=== PATIENT | male | born 1955 | race Caucasian/White ===

== ENCOUNTER 2016-07-20 14:29 | Emergency (ER) | payer MEDICAID, OTHER ==
[~2016-07-20] VITALS: Ht 177.8 cm; Wt 90.7 kg
[2016-07-20 14:30] VITALS: BP 153/89
[2016-07-20] MEDS ORDERED: NORCOTAB PO (15:06)
[2016-07-20] MEDS ORDERED: AUGM875T27 PO (15:06)
== END 2016-07-20 15:15 | disposition home or self-care (01) ==
LOC: M ED 14:52
DX: K02.9 Dental caries, unspecified (principal); K04.7 Periapical abscess without sinus

== ENCOUNTER → 2017-09-22 | Outpatient (CLI) | payer OTHER ==
[2017-09-22 15:29] LABS: BASO # 0.1 10^3/uL (0.0-0.2); BASO % 0.8 % (0.0-1.0); EOS # 0.3 10^3/uL (0.0-0.50); EOS % 4.2 % (0.0-3.0); HEMATOCRIT 45.3 % (42.0-52.0); HEMOGLOBIN 14.9 g/dl (13.5-17.5); IMMATURE GRANULOCYTE % 0.2 % (0-3.0); LYMPH % 30.4 % (24.0-44.0); MEAN CORPUSCULAR HGB CONC 32.9 g/dl (32.0-36.5); MEAN CORPUSCULAR VOLUME 94.2 fl (80.0-96.0); MONO # 0.6 10^3/uL (0.0-0.8); MONO % 9.5 % (0.0-5.0); NEUTROPHILS # 3.7 10^3/uL (1.8-7.7); NEUTROPHILS % 54.9 % (36.0-66.0); PLATELET COUNT, AUTOMATED 274 10^3/uL (150-450); RED BLOOD COUNT 4.81 10^6/uL (4.30-6.10); RED CELL DISTRIBUTION WIDTH 12.8 % (11.5-14.5); WHITE BLOOD COUNT 6.7 10^3/uL (4.0-10.0)
[2017-09-22 15:57] LABS: VITAMIN B12 LEVEL 437 PG/ML (247-911)
[2017-09-22 16:38] LABS: ALBUMIN 3.8 GM/DL (3.2-5.2); ALBUMIN/GLOBULIN RATIO 1.03 (1.00-1.93); ALKALINE PHOSPHATASE 111 U/L (45-117); ALT/SGPT 36 U/L (12-78); ANION GAP 5 MEQ/L (8-16); AST/SGOT 23 U/L (7-37); BILIRUBIN,TOTAL 0.5 MG/DL (0.2-1.0); BLOOD UREA NITROGEN 10 MG/DL (7-18); CALCIUM LEVEL 9.1 MG/DL (8.5-10.1); CARBON DIOXIDE LEVEL 33 MEQ/L (21-32); CHLORIDE LEVEL 103 MEQ/L (98-107); CHOLESTEROL LEVEL 185 MG/DL (<200); CHOLESTEROL RISK RATIO 4.021 (<5); CREATININE FOR GFR 0.91 MG/DL (0.70-1.30); GLOMERULAR FILTRATION RATE > 60.0 (>56); GLUCOSE, FASTING 96 MG/DL (70-100); HDL CHOLESTEROL 46 MG/DL (>40); LDL CHOLESTEROL 114.4 MG/DL (<100); NON-HDL-C 139 MG/DL; POTASSIUM SERUM 4.5 MEQ/L (3.5-5.1); SODIUM LEVEL 141 MEQ/L (136-145); THYROID STIMULATING HORMONE 0.665 uIU/ML (0.358-3.740); TOTAL PROTEIN 7.5 GM/DL (6.4-8.2); TRIGLYCERIDES LEVEL 123 MG/DL (<150)
== END ==
LOC: M LAB 14:46
DX: F41.1 Generalized anxiety disorder (principal)
CPT/HCPCS: 84443

== ENCOUNTER → 2018-01-15 | Outpatient (CLI) | payer OTHER | LOC: M EKG 11:48 | DX: R06.00 Dyspnea, unspecified (principal); I10 Essential (primary) hypertension; J44.9 Chronic obstructive pulmonary disease, unspecified; I27.20 Pulmonary hypertension, unspecified | CPT/HCPCS: 71046 ==

== ENCOUNTER → 2018-06-10 | Outpatient (CLI) | payer OTHER ==
[~2018-06-10] MED LIST: AUGM875T28 PO; NORCOTAB PO
--- NOTE | 2018-06-10 15:16 | REP ---
Low-dose lung cancer screening CT study of the chest: History: Nicotine dependence. Comparison chest x-ray is from January 15, 2018. Findings: There is no evidence of pulmonary nodule or mass lesion. There is minimal left apical linear fibrosis. No pleural effusion is seen. Vascular calcification is noted. Impression: Lung RADS category II benign findings. Repeat screening exam suggested 1 year. Electronically Signed by David Stein MD 06/10/2018 03:35 P
== END ==
LOC: M RAD 14:30
PROVIDERS: ATTEND Internal Medicine Pulmonary Disease
DX: Z12.2 Encounter for screening for malignant neoplasm of respiratory organs (principal); F17.218 Nicotine dependence, cigarettes, with other nicotine-induced disorders

== ENCOUNTER → 2019-06-29 | Outpatient (REF) | payer OTHER, MEDICAID ==
[~2019-06-29] MED LIST changes: +HYDR-3715 PO; -NORCOTAB PO
[2019-06-29 15:16] LABS: APPEARANCE, URINE CLOUDY (CLEAR); BACTERIA, URINE AUTO NEGATIVE (NEGATIVE); BILIRUBIN, URINE AUTO NEGATIVE (NEGATIVE); BLOOD, URINE BLOOD NEGATIVE (NEGATIVE); COLOR, URINE AMBER (YELLOW); GLUCOSE, URINE (UA) AUTO NEGATIVE (NEGATIVE); KETONE, URINE AUTO TRACE mg/dL (NEGATIVE); LEUKOCYTE ESTERASE, URINE AUTO NEGATIVE (NEGATIVE); MUCUS, URINE SMALL (NEGATIVE); NITRITE, URINE AUTO NEGATIVE (NEGATIVE); PROTEIN, URINE AUTO NEGATIVE (NEGATIVE); RBC, URINE AUTO 1 /HPF (0-3); SPECIFIC GRAVITY URINE AUTO 1.025 (1.002-1.035); SQUAMOUS EPITHELIAL CELL UR AU 0 /HPF (0-6); WBC, URINE AUTO 2 /HPF (0-3)
[2019-06-29 15:17] LABS: BASO # 0.1 10^3/uL (0.0-0.2); BASO % 0.7 % (0.0-1.0); EOS # 0.3 10^3/uL (0.0-0.5); EOS % 4.1 % (0.0-3.0); HEMATOCRIT 45.6 % (42.0-52.0); HEMOGLOBIN 14.9 g/dl (13.5-17.5); LYMPH # 2.3 10^3/uL (1.5-5.0); LYMPH % 30.7 % (24.0-44.0); MEAN CORPUSCULAR HEMOGLOBIN 31.3 pg (27.0-33.0); MEAN CORPUSCULAR HGB CONC 32.7 g/dl (32.0-36.5); MEAN CORPUSCULAR VOLUME 95.8 fl (80.0-96.0); MONO # 0.7 10^3/uL (0.0-0.8); MONO % 9.6 % (0.0-5.0); NEUTROPHILS # 4.2 10^3/uL (1.5-8.5); NEUTROPHILS % 54.8 % (36.0-66.0); PLATELET COUNT, AUTOMATED 272 10^3/uL (150-450); RED BLOOD COUNT 4.76 10^6/uL (4.30-6.10); WHITE BLOOD COUNT 7.6 10^3/uL (4.0-10.0)
[2019-06-29 15:37] LABS: ALBUMIN 3.6 GM/DL (3.2-5.2); ALT/SGPT 27 U/L (12-78); BILIRUBIN,TOTAL 0.8 MG/DL (0.2-1.0); BLOOD UREA NITROGEN 12 MG/DL (7-18); CARBON DIOXIDE LEVEL 28 MEQ/L (21-32); CHLORIDE LEVEL 107 MEQ/L (98-107); CHOLESTEROL LEVEL 181 MG/DL (<200); CHOLESTEROL RISK RATIO 4.113 (<5); FREE T4 1.02 NG/DL (0.76-1.46); GLOMERULAR FILTRATION RATE > 60.0 (>49); GLUCOSE, FASTING 109 MG/DL (70-100); HDL CHOLESTEROL 44 MG/DL (>40); LDL CHOLESTEROL 117 MG/DL (<100); NON-HDL-C 137 MG/DL; POTASSIUM SERUM 4.1 MEQ/L (3.5-5.1); SODIUM LEVEL 139 MEQ/L (136-145); TOTAL 25(OH) VITAMIN D 16.8 NG/ML (30.0-100.0); TOTAL PROTEIN 7.3 GM/DL (6.4-8.2); TRIGLYCERIDES LEVEL 102 MG/DL (<150)
[2019-06-29 15:42] LABS: HEMOGLOBIN A1c 5.8 %
== END ==
LOC: M LAB REF 14:38
PROVIDERS: ATTEND Nurse Practitioner Family
DX: M25.521 Pain in right elbow (principal); M79.661 Pain in right lower leg; Z13.9 Encounter for screening, unspecified; M25.512 Pain in left shoulder; I10 Essential (primary) hypertension; F41.8 Other specified anxiety disorders; Z72.0 Tobacco use; Z68.27 Body mass index [BMI] 27.0-27.9, adult; E66.3 Overweight

== ENCOUNTER → 2019-08-31 | Outpatient (CLI) | payer OTHER ==
[~2019-08-31] MED LIST changes: +ANOR1AER INH; +ARNU1INH INH; +HYDR-3363 PO; +IRBE150T7 PO; +MIRT1TAB PO; +SERT25TA85 PO; +VARE05TA PO; +VITA50005 PO
--- NOTE | 2019-09-01 06:44 | REP ---
Clinical: Lung screening. Nicotine dependence. Comparison: 06/10/2018 Technique: Axial low-dose noncontrast images from the thoracic inlet to the upper abdomen using lung screening technique. Findings: Innumerable bilateral soft tissue nodules/mass lesions are identified - the largest of which is within the right lower lobe and right lower lobe measuring 17 mm maximal diameter. Few of these lesions have possible small central cavitary components (images 20, 51). No pleural effusion. No pneumothorax. Tracheobronchial tree is patent. Mild adenopathy cannot be excluded. No pericardial effusion identified. Impression: 1. Innumerable bilateral soft tissue nodule/mass lesions measuring up to 17 mm maximal diameter. Differential diagnosis includes but is not limited to granulomatous infections, metastatic disease, Jodie's disease. Pulmonary consultation and further investigation is required. Electronically Signed by Wing Rojas MD 09/01/2019 06:36 A
== END ==
LOC: M RAD 15:17
PROVIDERS: ATTEND Physician Assistant
DX: Z12.2 Encounter for screening for malignant neoplasm of respiratory organs (principal); F17.218 Nicotine dependence, cigarettes, with other nicotine-induced disorders

== ENCOUNTER → 2019-09-05 | Outpatient (CLI) | payer OTHER ==
[2019-09-05 18:36] LABS: PLATELET COUNT, AUTOMATED 282 10^3/uL (150-450)
[2019-09-05 18:48] LABS: INR 1.04; PROTHROMBIN TIME 13.3 SECONDS (11.8-14.0)
[2019-09-05 18:49] LABS: PARTIAL THROMBOPLASTIN TIME 27.3 SECONDS (25.0-38.4)
[2019-09-09 18:07] LABS: ANCA-ATYPICAL <1:20 titer (Neg:<1:20); ASPERGILLUS FLAVUS ABY Negative (Neg:<1:1); ASPERGILLUS FUMIGATUS ABY Negative (Neg:<1:1); ASPERGILLUS NIGER ABY Negative (Neg:<1:1); BLASTOMYCES ABY Negative (Neg:<1:1); CYTOPLASMIC NEUTROP AB ANCA-C <1:20 titer (Neg:<1:20); HISTOPLASMA ABY Negative (Neg:<1:1); PERINUCLEAR AB ANCA-P <1:20 titer (Neg:<1:20)
== END ==
LOC: M PLALAB 15:47
PROVIDERS: ATTEND Internal Medicine Pulmonary Disease
DX: Z01.812 Encounter for preprocedural laboratory examination (principal); R91.8 Other nonspecific abnormal finding of lung field

== ENCOUNTER → 2019-09-09 | Outpatient (CLI) | payer OTHER | LOC: M LABSMTC 10:20 | PROVIDERS: ATTEND Anesthesiology | DX: Z01.818 Encounter for other preprocedural examination (principal); Z11.59 Encounter for screening for other viral diseases | CPT/HCPCS: C9803; U0003 ==

== ENCOUNTER 2019-09-12 06:30 | Day surgery (SDC) | payer OTHER ==
[~2019-09-12] VITALS: Ht 177.8 cm; Wt 88.9 kg
[~2019-09-12 06:30] MED LIST changes: +LIDOCAINE 1% MDV 20ML VIAL SQ PRN
[2019-09-12] MEDS ORDERED: LR 1,000 ML IV ONE (06:45)
[2019-09-12] MEDS ORDERED: THROMBIN SOLN 20,000 UNITS KIT As Ordered ONE (07:12)
[2019-09-12] MEDS ORDERED: LIDOCAINE 1% SDV 30ML VIAL As Ordered ONE (07:12)
[2019-09-12] MEDS ORDERED: LIDOCAINE VISCOUS 2% SOLN 15ML UDC As Ordered ONE (07:12)
[2019-09-12] MEDS ORDERED: EPINEPHrine 1MG/10ML SYRINGE 1.5IN As Ordered ONE (07:12)
[2019-09-12] MEDS ORDERED: CETACAINE SPRAY 5GM As Ordered ONE (07:12)
[2019-09-12] MEDS ORDERED: fentaNYL 100 MCG/2 ML INJECTION (J3010) As Ordered ONE (08:02)
[2019-09-12] MEDS ORDERED: ROCURONIUM BROMIDE 50 MG/5 ML VIAL As Ordered ONE (08:02)
[2019-09-12] MEDS ORDERED: propofoL 200 MG/20 ML VIAL As Ordered ONE ×2 (08:02→08:11)
[2019-09-12] MEDS ORDERED: MIDAZOLAM INJ 2MG/2ML VIAL (J2250 PER 1MG) As Ordered ONE (08:02)
[2019-09-12] MEDS ORDERED: SUGAMMADEX SODIUM 500 MG/5 ML VIAL (BRIDION) As Ordered ONE (08:02)
[2019-09-12] MEDS ORDERED: LIDOCAINE 2% 100MG/5ML SDV (FOR ANES.) As Ordered ONE (08:02)
[2019-09-12] MEDS ORDERED: METOCLOPRAMIDE INJ 10MG/2ML VIAL (J2765 PER 1) As Ordered ONE (08:02)
[2019-09-12] MEDS ORDERED: ePHEDrine SULFATE 25 MG/5 ML(5MG/ML) SYRINGE As Ordered ONE (08:02)
[2019-09-12] MEDS ORDERED: dexameTHASONE 4 MG/ML 1ML VIAL (J1100 PER 1MG) As Ordered ONE (08:02)
[2019-09-12] MEDS ORDERED: ONDANSETRON 4MG/2ML VIAL As Ordered ONE (08:02)
[2019-09-12] MEDS ORDERED: PHENYLephrine HCL 500 MCG/5 ML (100MCG/ML) SYRINGE (J2370) As Ordered ONE ×2 (08:02→08:14)
[2019-09-12] MEDS ORDERED: LR 1,000 ML IV SCH (09:00)
[2019-09-12] MEDS ORDERED: fentaNYL 100 MCG/2 ML INJECTION (J3010) IV PRN (09:00)
[2019-09-12] MEDS ORDERED: ONDANSETRON 4MG/2ML VIAL IV PRN (09:00)
[2019-09-12] MEDS ORDERED: oxyCODONE 5MG TAB PO PRN (09:00)
--- NOTE | 2019-09-12 09:09 | REP ---
Clinical: Postoperative assessment. Comparison: 01/15/2018. Findings: Mediastinum and cardiac silhouette are stable. Lung manjarrez demonstrate chronic interstitial changes. A vague area of small opacity in the periphery of the right upper lung zone overlying the anterior third rib and a 9 mm nodule in the periphery of the left upper lung zone in the fourth posterior rib interspace are identified. No effusion. No pneumothorax. Skeletal structures are intact. Impression: Subtle opacities/nodules. No consolidation, effusion, or pneumothorax. Electronically Signed by Wing Rojas MD 09/12/2019 09:01 A
--- NOTE | 2019-09-12 09:21 | REP ---
PARTIAL CHEST: Two views. HISTORY: Bilateral abnormalities. 0-kealgo-49-second fluoroscopy time is reported. FINDINGS: A sequence of two last image hold fluoroscopically obtained spot radiographs of the right chest document bronchoscopic instrumentation position. Electronically Signed by David Stein MD 09/12/2019 09:25 A
[2019-09-12 10:30] VITALS: BP 133/64
--- NOTE | 2019-09-12 11:33 | RO ---
DATE OF PROCEDURE: 09/12/2019 PREOPERATIVE DIAGNOSIS: Abnormal chest CT, multiple pulmonary nodules. POSTOPERATIVE DIAGNOSIS: Abnormal chest CT, multiple pulmonary nodules with findings of pitting and banding in the airway, smoker airway. PROCEDURE: Bronchoscopy with Electromagnetic navigational bronchoscopy and endobronchial ultrasound procedures. PHYSICIAN: Dr. Butler ANESTHESIA: General. Estimated blood loss less than 5 mL. No drains. No assistant manager/embalmer. SPECIMENS OBTAINED: 1. Right upper lobe and right lower lobe Cyto needle brush. 2. Transbronchial forceps biopsies right upper lobe right lower lobe. 3. GenCut fine-needle aspiration (FNA) right upper lobe, right lower lobe. 4. Bronchoalveolar lavage (BAL) right upper lobe, right lower lobe. No blood replacement needed. No observed complications. Postprocedure chest x-ray is pending. DESCRIPTION OF PROCEDURE: Informed consent was reviewed with the patient in the preop area. He was brought back to operating room (OR) #6, which is a pre-mapped room. Anesthesia was initiated with an 8.5 endotracheal tube, then case was handed over to va. Time-out was performed with two patient identifiers identifying correct site, correct procedures, correlating name, date of , with imaging in the room and the navigation machine. Cetacaine spray was used to anesthetize the airway and provide lubrication for the 1T180 bronchoscope. This was advanced into the airway. Trachea was midline. Iqra was sharp. There were no endotracheal lesions. Right upper lobe showed some banding and pitting but no endobronchial lesions. Right bronchus (RB) 1-3 was normal. RB 4 and 5 also normal along with 6-10. All airways were suctioned. There is minimal amounts of secretions. No hemorrhage. Some banding and pitting through out the airways, bronchus intermedius was also normal. Left mainstem was normal except for banding and pitting. Again, left bronchus (LB) 1-10 was viewed and classic anatomy. No endobronchial lesions. The scope was then retracted into the endotracheal tube and automatic registration was performed and confirmed. Target one was easily navigated to in the right upper lobe in the posterior segment. Fluoroscopy confirmed placement. The guide was removed from the sheath and a Cyto needle brush was performed. This was followed by multiple forceps biopsies and then a GenCut FNA. After adequate sampling, bronchoalveolar lavage was performed. A total of 10 mL. However, there was approximately only 5 mL of clear fluid on return. All airways were suctioned. There was no evidence of hemorrhage with retraction of the catheter. LG guide was replaced and target #3 was navigated to in the right lower lobe. This was in the superior basal segment of the right lower lobe. The take off of the superior basal segment was slightly more lateral than usual anatomy. Target #3 was easily navigated to confirmed with fluoroscopy. LG guide was removed and the same series of biopsies was performed. Cyto needle brush was performed. This was followed by multiple forceps biopsies and GenCut FNA. After adequate sampling, bronchoalveolar lavage was again performed. There was return of approximately 10 mL of bloody pink fluid. On-site cytology suggested possible inflammatory but no evidence of malignancy as of yet. No fiducial markers were placed as there is multiple lesions. The 1T190 was then removed after hemostasis was assured. Endobronchial ultrasound was inserted to view the precarinal node on the right. Picture was taken. Superior vena cava (SVC) was clear. There was no obtainable lymph node in the precarinal area. After visualization the endobronchial ultrasound linear probe was removed. No evidence of hemorrhage. The patient extubated and in recovery. Postprocedure chest x-ray is pending. To this point no observed complications. [facility]
== END 2019-09-12 10:40 | disposition home or self-care (01) ==
LOC: M SDC 06:30
PROVIDERS: ATTEND Internal Medicine Pulmonary Disease
DX: D14.31 Benign neoplasm of right bronchus and lung (principal); J44.9 Chronic obstructive pulmonary disease, unspecified; I10 Essential (primary) hypertension; F17.218 Nicotine dependence, cigarettes, with other nicotine-induced disorders
CPT/HCPCS: 31623; 31624; 31627; 31628; 31629; 31632; 31633; 31652; 71045; 76000; 87070; 87102; 87116; 87205; 87206; 88104; 88173; 88305; 88312; J1100; J2250; J2370; J2405; J2765; J3010

== ENCOUNTER → 2019-11-23 | Outpatient (CLI) | payer OTHER ==
[~2019-11-23] MED LIST changes: -LIDOCAINE 1% MDV 20ML VIAL SQ PRN
--- NOTE | 2019-12-15 14:57 | REP ---
NONCONTRAST CHEST CT CLINICAL: Follow-up abnormal lung findings. TECHNIQUE: Axial noncontrast images from the thoracic inlet to the upper abdomen with coronal and sagittal reformation. COMPARISON: 08/31/2019, 06/10/2018. FINDINGS: Since the recent prior examination, the bilateral pulmonary nodules have essentially remained stable with innumerable bilateral nodules identified measuring up to approximately 17 mm. No consolidation. No obvious significant new nodules. No adenopathy. No effusion. Tracheobronchial tree is patent. Further evaluation of the mediastinum demonstrates atherosclerotic changes to the thoracic aorta and coronary arteries without aortic aneurysm or cardiomegaly. No pericardial effusion. Limited upper abdomen demonstrates normal bilateral adrenal glands. Musculoskeletal structures are intact. IMPRESSION: Diffuse bilateral noncalcified pulmonary nodules measuring up to approximately 17 mm, stable compared to 08/21/2019, but new compared to 06/10/2018. Differential diagnosis again includes, but is not limited to metastatic disease, granulomatous disease, Wegners disease, and pulmonary consultation and follow- up is recommended. [facility]
== END ==
LOC: M RAD 13:14
PROVIDERS: ATTEND Internal Medicine Pulmonary Disease
DX: R91.8 Other nonspecific abnormal finding of lung field (principal)

== ENCOUNTER → 2020-05-29 | Outpatient (CLI) | payer OTHER ==
--- NOTE | 2020-05-29 13:38 | REP ---
INDICATION: ABN FINDING OF LUNG FIELD. COMPARISON: Chest CT dated 11/23/[address] dated 08/31/2019. TECHNIQUE: CT of the chest without IV contrast. FINDINGS: The patient has numerous known lung nodules bilaterally. One nodule in the right upper lobe on image 33 has enlarged today measuring 27 mm greatest diameter. This previously measured 16 mm. The remainder of the nodules appear stable in size. No new nodules are identified. On 08/31/2019 the left upper lobe nodule on image 57 and the right lower lobe lung nodule on image 152 appeared to contain cavitations. These cavitations were no longer identified on 11/23/2019 and are not identified on the study today. There are no infiltrates or pleural effusions. There is no mediastinal lymph node enlargement. There is no axillary lymph node enlargement. The study is insensitive for hilar lymph node enlargement in the absence of IV contrast. Thoracic aorta is unremarkable except for calcified atheroma. Cardiac size is normal. There is no pericardial effusion. There is calcified atheroma in the coronary arteries. Upper abdomen: There is no adrenal mass. The visualized areas of the unenhanced liver, gallbladder, pancreas and spleen are unremarkable. IMPRESSION: Numerous lung nodules are again identified not significantly changed in number. Two of these nodules appear to have increased in size as discussed above. Central cavitations were noted in 2 of these nodules on 08/31/2019. The central cavitations are no longer visible. <Electronically signed by Slava Barfield > 05/29/20 [id number]
== END ==
LOC: M RAD 10:33
PROVIDERS: ATTEND Internal Medicine Pulmonary Disease
DX: R91.8 Other nonspecific abnormal finding of lung field (principal)

== ENCOUNTER → 2020-06-15 | Outpatient (CLI) | payer OTHER | LOC: M LABSMTC 10:40 | PROVIDERS: ATTEND Anesthesiology | DX: Z01.818 Encounter for other preprocedural examination (principal); Z20.822 Contact with and (suspected) exposure to COVID-19 ==

== ENCOUNTER 2020-06-22 15:54 | Emergency (ER) | payer OTHER ==
[~2020-06-22] VITALS: Ht 177.8 cm; Wt 96.5 kg
[2020-06-22] MEDS ORDERED: MECLIZINE 25 MG TABLET PO ONE (16:30)
[2020-06-22 16:46] LABS: HEMATOCRIT 44.8 % (42.0-52.0); HEMOGLOBIN 14.5 g/dl (13.5-17.5); MEAN CORPUSCULAR HEMOGLOBIN 30.5 pg (27.0-33.0); MEAN CORPUSCULAR HGB CONC 32.4 g/dl (32.0-36.5); MEAN CORPUSCULAR VOLUME 94.3 fl (80.0-96.0); PLATELET COUNT, AUTOMATED 274 10^3/uL (150-450); RED BLOOD COUNT 4.75 10^6/uL (4.30-6.10); WHITE BLOOD COUNT 6.9 10^3/uL (4.0-10.0)
[2020-06-22] MEDS ORDERED: MECL1TAB31 PO (18:04)
[2020-06-22 18:15] VITALS: BP 156/75
--- NOTE | 2020-06-22 18:19 | REPVR ---
PROCEDURE INFORMATION: Exam: MR Head Without Contrast Exam date and time: 06/22/2020 4:26 PM Age: 64 years old Clinical indication: Dizziness; Additional info: Vertigo ? cerebellar TECHNIQUE: Imaging protocol: MR of the head without contrast. COMPARISON: No relevant prior studies available. FINDINGS: Brain: There is no restricted diffusion to suggest acute infarction. No lesions are seen in the cerebellopontine sulci nor within the internal auditory canals. The 7th and 8th nerve complexes appear symmetric. There is no acute intracranial hemorrhage. Minimal white matter lesions are seen predominantly subcortical. There are no prior microhemorrhages. Cerebral ventricles: No ventriculomegaly. Bones/joints: Unremarkable. Paranasal sinuses: Mucoperiosteal thickening is seen in the floor the right maxillary antrum and to a lesser degree on the left as well as within several ethmoid air cells and the frontal sinus. Mastoid air cells: Normal as visualized. No mastoid effusion. Orbital cavity: Unremarkable. Soft tissues: Unremarkable. IMPRESSION: 1. No evidence of acute infarction. 2. Normal appearance of the cerebellum, brainstem, cerebellopontine sulci in internal auditory canals. 3. At least mild paranasal sinusitis. 4. Scattered primarily subcortical white matter hyperintensities which is a nonspecific finding most frequently associated with microangiopathy however can also be seen with infectious and noninfectious inflammatory disorders, migraine, vasculitis among other etiologies. Electronically signed by: Brandie Talley On 06/22/2020 18:19:37 PM
--- NOTE | 2020-06-22 18:32 | REPVR ---
PROCEDURE INFORMATION: Exam: MRA Head Without Contrast; Arteriography Exam date and time: 06/22/2020 4:26 PM Age: 64 years old Clinical indication: Vertigo; Additional info: Vertigo ? cerebellar TECHNIQUE: Imaging protocol: Magnetic resonance angiography head without contrast. Exam focused on the arteries. COMPARISON: No relevant prior studies available. FINDINGS: ANTERIOR CIRCULATION: Right internal carotid artery: Intracranial segment is patent with no significant stenosis. No aneurysm. Right middle cerebral artery: No occlusion or significant stenosis. No aneurysm. Right anterior cerebral artery: No occlusion or significant stenosis. There may be an aneurysm of the right A1, appearing to be prior to the A1/ A2 junction and anterior communicating artery measuring 3.8 mm. Series 301, image 1 frame 93-96, series 304 image 1 frames 1 -16. Tthere is anomalous configuration with 3 A2 segments. Left internal carotid artery: Intracranial segment is patent with no significant stenosis. No aneurysm. Left middle cerebral artery: No occlusion or significant stenosis. No aneurysm. Left anterior cerebral artery: No occlusion or significant stenosis. No aneurysm. POSTERIOR CIRCULATION: Right vertebral artery: No occlusion or significant stenosis. No aneurysm. Left vertebral artery: No occlusion or significant stenosis. No aneurysm. Basilar artery: No occlusion or significant stenosis. No aneurysm. Right posterior cerebral artery: No occlusion or significant stenosis. No aneurysm. Left posterior cerebral artery: No occlusion or significant stenosis. No aneurysm. IMPRESSION: No stenosis or occlusion. 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 Electronically signed by: Brandie Talley On 06/22/2020 18:32:29 PM
--- NOTE | 2020-06-23 07:19 | ED PDOC ---
Post-Departure Follow-Up radiology reports faxed t Felicia Acosta MD Jun 23, 2020 07:19
--- NOTE | 2020-06-23 15:51 | ECGEPIP ---
[facility] - ED Test Date: 2020-06-22 Pat Name: SKY RÍOS Department: Room: - Gender: Male Business Solutions Architect: NILSON : 1955 Requested By: Felicia Bernstein Order Number: [id number] Reading MD: Jerzy Zhang Measurements Intervals Shade Rate: 91 P: 68 NE: 166 QRS: 41 QRSD: 94 T: 62 QT: 364 QTc: 447 Interpretive Statements Normal sinus rhythm Electronically Signed on 06-23-2020 15:51:34 EDT by Jerzy Zhang
== END 2020-06-22 18:48 | disposition home or self-care (01) ==
LOC: M ED 15:54
DX: H81.399 Other peripheral vertigo, unspecified ear (principal); J44.9 Chronic obstructive pulmonary disease, unspecified; I10 Essential (primary) hypertension; Z79.899 Other long term (current) drug therapy; F17.210 Nicotine dependence, cigarettes, uncomplicated

== ENCOUNTER → 2020-08-06 | Outpatient (CLI) | payer OTHER ==
[~2020-08-06] MED LIST changes: +MECL1TAB31 PO
--- NOTE | 2020-08-06 18:51 | REPVR ---
PROCEDURE INFORMATION: Exam: CT Chest Without Contrast; Diagnostic Exam date and time: 08/06/2020 6:20 PM Age: 64 years old Clinical indication: Other: Other non specifc abn finding of lung field TECHNIQUE: Imaging protocol: Diagnostic computed tomography of the chest without contrast. 3D rendering (Not supervised by radiologist): MIP and/or 3D reconstructed images were created by the technologist. Radiation optimization: All CT scans at this facility use at least one of these dose optimization techniques: automated exposure control; mA and/or kV adjustment per patient size (includes targeted exams where dose is matched to clinical indication); or iterative reconstruction. COMPARISON: CT Chest without contrast 05/29/2020 10:41 AM FINDINGS: Lungs: Interval decrease in the size of a noncalcified spiculated nodule/mass in the posterior segment of the right upper lobe measuring 1.5 x 2.1 cm maximally on the current examination with strand-like extensions to the lateral pleural surface. Multiple other noncalcified pulmonary parenchymal nodules with a dominantly smooth borders although several demonstrates spiculated margins appear stable in size in number in comparison to the prior study of 05/29/2020. Pleural spaces: Unremarkable. No pneumothorax. No pleural effusion. Heart: There is mild atherosclerotic calcification of the coronary arteries. Aorta: There is mild atherosclerosis in the thoracic aorta. Lymph nodes: Unremarkable. No enlarged lymph nodes. Kidneys and ureters: Nonobstructive calculus right kidney. Stomach and bowel: There is gastric distention with retained secretions. Clinical correlation to exclude gastroparesis or gastric outlet obstruction suggested. Bones/joints: Unremarkable. No acute fracture. Soft tissues: Unremarkable. IMPRESSION: 1. Interval decrease in the size of a suspicious appearing noncalcified spiculated nodule/mass in the posterior segment right upper lobe as described above. Finding worrisome for malignancy to be correlated with clinical findings including PET imaging. 2. Multiple other noncalcified pulmonary parenchymal nodules with a dominantly smooth borders although several demonstrates spiculated margins appear stable in size in number in comparison to the prior study of 05/29/2020. Continued interval follow-up based on patient's clinical assessment/therapy suggested as clinically directed. 3. There is gastric distention with retained secretions. Clinical correlation to exclude gastroparesis or gastric outlet obstruction suggested. Electronically signed by: Javier Silverio On 08/06/2020 18:51:02 PM
== END ==
LOC: M RAD 18:07
PROVIDERS: ATTEND Internal Medicine Pulmonary Disease
DX: R91.8 Other nonspecific abnormal finding of lung field (principal); K31.89 Other diseases of stomach and duodenum; I25.10 Atherosclerotic heart disease of native coronary artery without angina pectoris; I70.0 Atherosclerosis of aorta

== ENCOUNTER → 2020-08-16 | Outpatient (CLI) | payer OTHER | LOC: M LABSMTC 13:53 | PROVIDERS: ATTEND Anesthesiology | DX: Z01.812 Encounter for preprocedural laboratory examination (principal); Z11.52 Encounter for screening for COVID-19 ==

== ENCOUNTER 2020-08-19 06:24 | Day surgery (SDC) | payer OTHER ==
[~2020-08-19] VITALS: Ht 175.3 cm; Wt 98.0 kg
[~2020-08-19 06:24] MED LIST changes: +ERGO500029 PO; -VITA50005 PO
[2020-08-19] MEDS ORDERED: LIDOCAINE 4% INJ 5ML AMP INH ONE (06:45)
[2020-08-19] MEDS ORDERED: ALBUTEROL SULFATE 2.5 MG/0.5 ML INH NEB SOLN INH ONE (06:45)
[2020-08-19] MEDS ORDERED: THROMBIN SOLN 20,000 UNITS KIT As Ordered ONE (07:07)
[2020-08-19] MEDS ORDERED: LIDOCAINE VISCOUS 2% SOLN 15ML UDC As Ordered ONE (07:08)
[2020-08-19] MEDS ORDERED: EPINEPHrine 1MG/10ML SYRINGE 1.5IN As Ordered ONE (07:08)
[2020-08-19] MEDS ORDERED: LIDOCAINE 1% SDV 30ML VIAL As Ordered ONE (07:08)
[2020-08-19] MEDS ORDERED: CETACAINE SPRAY 5GM As Ordered ONE (07:09)
[2020-08-19] MEDS ORDERED: dexameTHASONE 4 MG/ML 1ML VIAL (J1100 PER 1MG) As Ordered ONE (07:21)
[2020-08-19] MEDS ORDERED: propofoL 200 MG/20 ML VIAL As Ordered ONE (07:21)
[2020-08-19] MEDS ORDERED: MIDAZOLAM INJ 2MG/2ML VIAL (J2250 PER 1MG) As Ordered ONE (07:21)
[2020-08-19] MEDS ORDERED: ROCURONIUM BROMIDE 50 MG/5 ML VIAL As Ordered ONE ×2 (07:21→08:28)
[2020-08-19] MEDS ORDERED: fentaNYL 100 MCG/2 ML INJECTION (J3010) As Ordered ONE (07:21)
[2020-08-19] MEDS ORDERED: ONDANSETRON 4MG/2ML VIAL As Ordered ONE (07:21)
[2020-08-19] MEDS ORDERED: LIDOCAINE 2% 100MG/5ML SDV (FOR ANES.) As Ordered ONE (07:21)
[2020-08-19] MEDS ORDERED: LR 1,000 ML IV ONE (07:25)
[2020-08-19] MEDS ORDERED: PHENYLephrine 500MCG 5ML (100MCG/ML) SYRINGE As Ordered ONE (08:06)
[2020-08-19] MEDS ORDERED: SUGAMMADEX SODIUM 500 MG/5 ML VIAL (BRIDION) As Ordered ONE (08:21)
--- NOTE | 2020-08-19 08:44 | REP ---
INDICATION: RIGHT MIDDLE LOBE ABNORMALITY. COMPARISON: None. TECHNIQUE: Intraoperative fluoroscopic imaging using portable C-arm technique. FINDINGS: Single image consistent with bronchoscopy. Total fluoroscopic time 1 minutes 30 seconds. IMPRESSION: Single image from bronchoscopy. <Electronically signed by Wing Rojas > 08/19/20 [id number]
--- NOTE | 2020-08-19 09:07 | REP ---
INDICATION: POST BRONCH COMPARISON: 09/12/2019 TECHNIQUE: Portable AP view of the chest FINDINGS: Mediastinum and cardiac silhouette are stable. Lung manjarrez demonstrate chronic stable interstitial changes. There is a vague area of increased opacity in the right upper lung zone. Small scattered nodules are also suspected and similar to prior examination. No effusion. No pneumothorax. IMPRESSION: Stable chronic changes including few nodules. New area of moderate opacity in the right upper lung zone warrants follow-up to resolution. <Electronically signed by Wing Rojas > 08/19/20 0904
[2020-08-19] MEDS ORDERED: oxyCODONE 5MG TAB PO PRN (09:35)
[2020-08-19] MEDS ORDERED: ONDANSETRON 4MG/2ML VIAL IV PRN (09:35)
[2020-08-19] MEDS ORDERED: LR 1,000 ML IV SCH (09:35)
[2020-08-19] MEDS ORDERED: fentaNYL 100 MCG/2 ML INJECTION (J3010) IV PRN (09:35)
[2020-08-19] MEDS ORDERED: HYDROMORPHONE HCL 0.5 MG/ 0.5 ML SYRINGE (J1170 PER 1) IV PRN (09:35)
--- NOTE | 2020-08-19 10:19 | RO ---
OPERATIVE NOTE DATE OF OPERATION: 08/19/2020 PREOPERATIVE DIAGNOSES: Abnormal chest CT right upper lobe. Right middle lobe abnormalities. POSTOPERATIVE DIAGNOSIS: Abnormal chest CT right upper lobe. Right middle lobe abnormalities. PROCEDURE: Bronchoscopy with robotic [place] platform. Findings of a smoker's airway. SURGEON: Sammy Butler DO, [facility] MEAT MANAGER: Jackelin Minor MD ANESTHESIA: General. SPECIMENS OBTAINED: 1. Transbronchial biopsy right upper lobe, path. 2. Transbronchial biopsies right upper lobe culture. 3. BAL right upper lobe AFB, fungal culture and gram stain and cytology. ESTIMATED BLOOD LOSS: Less than 10 mL. DRAINS: No drains. DESCRIPTION OF PROCEDURE: After informed consent was reviewed with the patient in the preoperative area, he was brought back to OR #8. The patient was intubated and general anesthesia was initiated. The case was then handed over to hi. A time-out was performed with two patient identifiers, identifying correct site, correct procedure. Name and date of also correlated with imaging and [place] platform. The 1T190 bronchoscope was then inserted into the endotracheal tube with Cetacaine spray. The airway was inspected. Trachea was midline. Iqra was sharp. Right and left mainstem bronchi were filled with some mucus. This was suctioned. There were no endobronchial abnormalities in the right or left mainstem bronchus. RB1-10 was inspected with minimal banding. There was also minimal pitting. LB1-10 with minimal banding, pitting. No evidence of mucus. Bronchoscope was then removed and the robotic platform was initiated. This was easily synchronized and the lesion in the right upper lobe posterior segment was easily navigated to. Confirmed with fluoroscopy. Transbronchial biopsies were obtained, approximately seven transbronchial biopsies were obtained with good tissue. Another transbronchial biopsy was obtained for tissue culture. Bronchoalveolar lavage was then performed of this segment. Bronchoscope was removed and then the 1T190 bronchoscope was reinserted. Additional BAL of the posterior segment was obtained. After all airways were suctioned, hemostasis was assured and the 1T190 bronchoscope was removed. Post-procedure chest x-ray is pending. [facility]
[2020-08-19 12:00] VITALS: BP 122/69
== END 2020-08-19 12:14 | disposition home or self-care (01) ==
LOC: M SDC 06:24
PROVIDERS: ATTEND Internal Medicine Pulmonary Disease
DX: R91.8 Other nonspecific abnormal finding of lung field (principal); I10 Essential (primary) hypertension; J44.9 Chronic obstructive pulmonary disease, unspecified; R06.02 Shortness of breath; L40.9 Psoriasis, unspecified; F41.9 Anxiety disorder, unspecified; F32.9 Major depressive disorder, single episode, unspecified; R42 Dizziness and giddiness; Z87.891 Personal history of nicotine dependence; Z79.899 Other long term (current) drug therapy
CPT/HCPCS: 31624; 31628; 71045; 76000; 87070; 87077; 87102; 87116; 87186; 87205; 87206; 88108; 88305; 88312; 88313; J1100; J2250; J2370; J2405; J3010; S2900

== ENCOUNTER → 2020-11-07 | Outpatient (CLI) | payer OTHER ==
[2020-11-07 18:27] LABS: BASO # 0.1 10^3/uL (0.0-0.2); BASO % 0.7 % (0.0-1.0); EOS # 0.4 10^3/uL (0.0-0.5); EOS % 4.8 % (0.0-3.0); HEMATOCRIT 46.1 % (42.0-52.0); HEMOGLOBIN 14.7 g/dl (13.5-17.5); LYMPH # 1.8 10^3/uL (1.5-5.0); LYMPH % 24.6 % (24.0-44.0); MEAN CORPUSCULAR HEMOGLOBIN 31.1 pg (27.0-33.0); MEAN CORPUSCULAR HGB CONC 31.9 g/dl (32.0-36.5); MEAN CORPUSCULAR VOLUME 97.7 fl (80.0-96.0); MONO # 0.7 10^3/uL (0.0-0.8); MONO % 9.3 % (2.0-8.0); NEUTROPHILS # 4.4 10^3/uL (1.5-8.5); NEUTROPHILS % 60.2 % (36.0-66.0); PLATELET COUNT, AUTOMATED 258 10^3/uL (150-450); RED BLOOD COUNT 4.72 10^6/uL (4.30-6.10); WHITE BLOOD COUNT 7.2 10^3/uL (4.0-10.0)
[2020-11-07 19:01] LABS: BLOOD UREA NITROGEN 9 MG/DL (7-18); GLOMERULAR FILTRATION RATE > 60.0 (>49); GLUCOSE, FASTING 98 MG/DL (70-100); SODIUM LEVEL 140 MEQ/L (136-145)
[2020-11-07 19:02] LABS: ALBUMIN 3.4 GM/DL (3.2-5.2); ALT/SGPT 27 U/L (12-78); BILIRUBIN,TOTAL 0.4 MG/DL (0.2-1.0); C REACTIVE PROTEIN QUANTITATIV 0.56 MG/DL (0.00-0.30); CALCIUM LEVEL 9.5 MG/DL (8.8-10.2); CARBON DIOXIDE LEVEL 31 MEQ/L (21-32); CHLORIDE LEVEL 107 MEQ/L (98-107); POTASSIUM SERUM 4.8 MEQ/L (3.5-5.1); TOTAL PROTEIN 7.2 GM/DL (6.4-8.2)
[2020-11-07 19:48] LABS: HIV 1&2 SCREEN CENTAUR NEGATIVE (NEGATIVE)
== END ==
LOC: M LAB 17:39
PROVIDERS: ATTEND Internal Medicine Infectious Disease
DX: A31.0 Pulmonary mycobacterial infection (principal)

== ENCOUNTER → 2020-11-07 | Outpatient (CLI) | payer OTHER ==
[2020-11-07 18:57] LABS: ALBUMIN 3.5 GM/DL (3.2-5.2); ALT/SGPT 26 U/L (12-78); BILIRUBIN,TOTAL 0.4 MG/DL (0.2-1.0); BLOOD UREA NITROGEN 9 MG/DL (7-18); CALCIUM LEVEL 9.2 MG/DL (8.8-10.2); CARBON DIOXIDE LEVEL 30 MEQ/L (21-32); CHLORIDE LEVEL 107 MEQ/L (98-107); CREATININE FOR GFR 0.76 MG/DL (0.70-1.30); GLOMERULAR FILTRATION RATE > 60.0 (>49); GLUCOSE, FASTING 98 MG/DL (70-100); MAGNESIUM LEVEL 2.2 MG/DL (1.8-2.4); POTASSIUM SERUM 4.7 MEQ/L (3.5-5.1); SODIUM LEVEL 140 MEQ/L (136-145); TOTAL PROTEIN 7.3 GM/DL (6.4-8.2)
== END ==
LOC: M LAB 17:42
PROVIDERS: ATTEND Physician Assistant
DX: I10 Essential (primary) hypertension (principal)

== ENCOUNTER → 2020-12-04 | Outpatient (REF) | payer OTHER | LOC: M SFHCPLAZ 17:08 | PROVIDERS: ATTEND Internal Medicine Infectious Disease | DX: A31.0 Pulmonary mycobacterial infection (principal) ==

== ENCOUNTER → 2020-12-24 | Outpatient (CLI) | payer OTHER ==
--- NOTE | 2021-01-07 12:12 | REP ---
INDICATION: ABN FIDNING OF LUNG COMPARISON: MULTIPLE THE LATEST 08/06/2020 ALSO WITHOUT CONTRAST TECHNIQUE: Standard helical technique without contrast FINDINGS: The mediastinum and pulmonary jackelin are stable. There are no pleural or pericardial effusions. There is no change in the imaged upper abdomen or imaged osseous structures. Evaluation of the lung manjarrez shows a stable nodule in the left upper lobe. The large somewhat spiculated nodule seen previously in the right upper lobe has gotten smaller. Numerous additional nodules in the left upper lobe are all stable. Numerous additional nodules in the right upper lobe are all stable. Numerous right lower lobe nodules are all stable. No definite new nodules have developed. IMPRESSION: 1. There are numerous stable bilateral pulmonary nodules. 2. The dominant spiculated right upper lobe nodule seen on the prior exam when it is greatest dimensional measurement was 3.2 cm today measures 1.4 cm in its greatest dimension. 3. There is no revised Fleischner society criteria on the recommendation for follow-up of such diffuse abnormal lung nodules. Follow-up should be based on clinical assessment. <Electronically signed by Quinton Lund > 01/07/21 [id number]
== END ==
LOC: M RAD 15:58
PROVIDERS: ATTEND Internal Medicine Pulmonary Disease
DX: R91.8 Other nonspecific abnormal finding of lung field (principal)

== ENCOUNTER → 2021-05-01 | Outpatient (REF) | payer OTHER | LOC: M SFHCPLAZ 15:00 | PROVIDERS: ATTEND Internal Medicine Infectious Disease | DX: A31.0 Pulmonary mycobacterial infection (principal) ==

== ENCOUNTER → 2021-06-02 | Outpatient (CLI) | payer OTHER ==
[2021-06-02 15:13] LABS: BASO % 0.7 % (0.0-1.0); EOS # 0.3 10^3/uL (0.0-0.5); EOS % 4.6 % (0.0-3.0); HEMATOCRIT 45.3 % (42.0-52.0); HEMOGLOBIN 14.9 g/dl (13.5-17.5); LYMPH # 2.2 10^3/uL (1.5-5.0); MEAN CORPUSCULAR HEMOGLOBIN 31.3 pg (27.0-33.0); MEAN CORPUSCULAR HGB CONC 32.9 g/dl (32.0-36.5); MEAN CORPUSCULAR VOLUME 95.2 fl (80.0-96.0); MONO # 0.6 10^3/uL (0.0-0.8); MONO % 10.3 % (2.0-8.0); NEUTROPHILS # 2.9 10^3/uL (1.5-8.5); NEUTROPHILS % 48.1 % (36.0-66.0); PLATELET COUNT, AUTOMATED 242 10^3/uL (150-450); RED BLOOD COUNT 4.76 10^6/uL (4.30-6.10); WHITE BLOOD COUNT 6.1 10^3/uL (4.0-10.0)
[2021-06-02 15:22] LABS: ALT/SGPT 30 U/L (12-78); BILIRUBIN,TOTAL 0.5 MG/DL (0.2-1.0); BLOOD UREA NITROGEN 9 MG/DL (7-18); C REACTIVE PROTEIN QUANTITATIV 0.46 MG/DL (0.00-0.30); CALCIUM LEVEL 9.5 MG/DL (8.8-10.2); CARBON DIOXIDE LEVEL 30 MEQ/L (21-32); CHLORIDE LEVEL 107 MEQ/L (98-107); CREATININE FOR GFR 0.85 MG/DL (0.70-1.30); GLOMERULAR FILTRATION RATE > 60.0 (>49); GLUCOSE, FASTING 89 MG/DL (70-100); POTASSIUM SERUM 3.9 MEQ/L (3.5-5.1); SODIUM LEVEL 141 MEQ/L (136-145); TOTAL PROTEIN 7.4 GM/DL (6.4-8.2)
[2021-06-02 15:45] LABS: ERYTHROCYTE SEDIMENTATION RATE 15 mm/hr (0-20)
== END ==
LOC: M PLALAB 14:07
PROVIDERS: ATTEND Internal Medicine Infectious Disease
DX: A31.0 Pulmonary mycobacterial infection (principal)

== ENCOUNTER → 2021-07-16 | Outpatient (CLI) | payer OTHER ==
[~2021-07-16] MED LIST changes: +ATOR1TAB21 PO; +AZIT-12 PO; +ETHA1TAB2 PO; +RIFA300C8 PO; +SERT-141 PO
== END ==
LOC: M PLAIMG 14:37
PROVIDERS: ATTEND Internal Medicine Pulmonary Disease
DX: R91.8 Other nonspecific abnormal finding of lung field (principal)

== ENCOUNTER → 2021-10-07 | Outpatient (REF) | payer OTHER | LOC: M SFHCPLAZ 15:05 | PROVIDERS: ATTEND Internal Medicine Infectious Disease | DX: A31.0 Pulmonary mycobacterial infection (principal) ==

== ENCOUNTER 2021-12-16 19:47 | Emergency (ER) | payer OTHER ==
[2021-12-16] VITALS (11 sets, daily range): BP systolic 139–213; BP diastolic 76–115
[~2021-12-16] VITALS: Ht 175.3 cm; Wt 89.2 kg
[2021-12-16] MEDS ORDERED: ONDANSETRON 4MG 2ML VIAL IV ONE (20:15)
[2021-12-16] MEDS: HYDROMORPHONE HCL 0.5 MG/ 0.5 ML SYRINGE (J1170 PER 1) IV PRN ×2 (20:33→21:28)
[2021-12-16 20:42] LABS: BASO % 0.4 % (0.0-1.0); EOS # 0.1 10^3/uL (0.0-0.5); EOS % 1.3 % (0.0-3.0); HEMATOCRIT 45.8 % (42.0-52.0); HEMOGLOBIN 14.7 g/dl (13.5-17.5); LYMPH # 1.3 10^3/uL (1.5-5.0); LYMPH % 13.4 % (24.0-44.0); MEAN CORPUSCULAR HEMOGLOBIN 31.2 pg (27.0-33.0); MEAN CORPUSCULAR HGB CONC 32.1 g/dl (32.0-36.5); MEAN CORPUSCULAR VOLUME 97.2 fl (80.0-96.0); MONO # 0.6 10^3/uL (0.0-0.8); MONO % 5.8 % (2.0-8.0); NEUTROPHILS # 7.9 10^3/uL (1.5-8.5); NEUTROPHILS % 78.8 % (36.0-66.0); PLATELET COUNT, AUTOMATED 242 10^3/uL (150-450); RED BLOOD COUNT 4.71 10^6/uL (4.30-6.10)
[2021-12-16] MEDS: LABETALOL 100MG/20ML VIAL IV PRN ×2 (20:54→21:27)
[2021-12-16 20:56] LABS: INR 0.89; PROTHROMBIN TIME 12.4 SECONDS (12.7-14.5)
[2021-12-16 20:57] LABS: PARTIAL THROMBOPLASTIN TIME 25.5 SECONDS (25.9-37.0)
[2021-12-16 21:12] LABS: RSV AMPLIFICATION NEGATIVE (NEGATIVE)
[2021-12-16 21:23] LABS: BLOOD UREA NITROGEN 11 MG/DL (7-18); CALCIUM LEVEL 9.1 MG/DL (8.8-10.2); CARBON DIOXIDE LEVEL 29 MEQ/L (21-32); CHLORIDE LEVEL 105 MEQ/L (98-107); CREATININE FOR GFR 0.78 MG/DL (0.70-1.30); GLOMERULAR FILTRATION RATE > 60.0 (>49); GLUCOSE, FASTING 118 MG/DL (70-100); POTASSIUM SERUM 3.9 MEQ/L (3.5-5.1); SODIUM LEVEL 138 MEQ/L (136-145)
[2021-12-16 21:28] LABS: CK-MB VALUE MASS 1.4 NG/ML (<3.6); MB/CK RELATIVE INDEX 1.69 (< OR =4)
[2021-12-16] MEDS ORDERED: hydrALAZINE 20MG/ML 1ML VIAL (J0360 PER 20MG) IV PRN (21:40)
[2021-12-16] MEDS ORDERED: niCARdipine IV 40 MG in IV 1 EA IV SCH (21:50)
== END 2021-12-16 22:37 | disposition short-term general hospital (02) ==
LOC: M ED 19:47
DX: I60.9 Nontraumatic subarachnoid hemorrhage, unspecified (principal); I10 Essential (primary) hypertension; F17.200 Nicotine dependence, unspecified, uncomplicated; J34.9 Unspecified disorder of nose and nasal sinuses; J98.11 Atelectasis; R91.8 Other nonspecific abnormal finding of lung field; Z79.899 Other long term (current) drug therapy
CPT/HCPCS: 70450; 71045; 80048; 82550; 82553; 85025; 85610; 85730; 87631; 93005; 93041; 94760; 96365; 96366; 96375; 99285; J1170; J2405

== ENCOUNTER → 2022-01-26 | Outpatient (CLI) | payer OTHER | LOC: M PLAIMG 11:26 | PROVIDERS: ATTEND Internal Medicine Pulmonary Disease | DX: R91.8 Other nonspecific abnormal finding of lung field (principal) ==

== ENCOUNTER → 2022-02-25 | Outpatient (REF) | payer OTHER ==
[2022-02-25 17:39] LABS: BASO # 0.1 10^3/uL (0.0-0.2); EOS % 12.5 % (0.0-3.0); HEMATOCRIT 41.5 % (42.0-52.0); HEMOGLOBIN 13.3 g/dl (13.5-17.5); LYMPH # 2.4 10^3/uL (1.5-5.0); LYMPH % 30.6 % (24.0-44.0); MEAN CORPUSCULAR HEMOGLOBIN 32.5 pg (27.0-33.0); MEAN CORPUSCULAR VOLUME 101.5 fl (80.0-96.0); MONO # 0.8 10^3/uL (0.0-0.8); MONO % 9.7 % (2.0-8.0); NEUTROPHILS # 3.6 10^3/uL (1.5-8.5); NEUTROPHILS % 45.7 % (36.0-66.0); PLATELET COUNT, AUTOMATED 280 10^3/uL (150-450); RED BLOOD COUNT 4.09 10^6/uL (4.30-6.10); WHITE BLOOD COUNT 7.8 10^3/uL (4.0-10.0)
[2022-02-25 18:06] LABS: ALBUMIN 3.7 G/DL (3.2-5.2); ALKALINE PHOSPHATASE 119 U/L (46-116); ALT/SGPT 27 U/L (7.0-40); AST/SGOT 20 U/L (<34); BILIRUBIN,TOTAL 0.3 MG/DL (0.3-1.2); BLOOD UREA NITROGEN 16 MG/DL (9-23); CALCIUM LEVEL 9.3 MG/DL (8.3-10.6); CARBON DIOXIDE LEVEL 31 MMOL/L (20-31); CHLORIDE LEVEL 105 MMOL/L (98-107); CHOLESTEROL LEVEL 144 MG/DL (<200); CHOLESTEROL RISK RATIO 2.71 (<5); CREATININE FOR GFR 0.79 MG/DL (0.70-1.30); GLOMERULAR FILTRATION RATE > 60.0 (>49); GLUCOSE, FASTING 95 MG/DL (74-106); HEMOGLOBIN A1c 5.2 % (4.0-6.0); LDL CHOLESTEROL 75.8 MG/DL (<100); NON-HDL-C 91 MG/DL; POTASSIUM SERUM 4.8 MMOL/L (3.5-5.1); SODIUM LEVEL 142 MMOL/L (136-145); THYROID STIMULATING HORMONE 2.362 uIU/ML (0.55-4.78); TOTAL PROTEIN 6.7 G/DL (5.7-8.2); TRIGLYCERIDES LEVEL 76 MG/DL (<150)
== END ==
LOC: M LAB REF 16:27
PROVIDERS: ATTEND Pediatrics
DX: I10 Essential (primary) hypertension (principal); R73.03 Prediabetes; E78.5 Hyperlipidemia, unspecified; K21.9 Gastro-esophageal reflux disease without esophagitis

== ENCOUNTER → 2022-05-21 | Outpatient (CLI) | payer OTHER | LOC: M SOG 08:01 | PROVIDERS: ATTEND Orthopaedic Surgery | DX: M19.012 Primary osteoarthritis, left shoulder (principal) ==

== ENCOUNTER → 2022-07-13 | Outpatient (CLI) | payer OTHER ==
[2022-07-13 17:19] LABS: BASO # 0.1 10^3/uL (0.0-0.2); BASO % 0.8 % (0.0-1.0); EOS # 0.7 10^3/uL (0.0-0.5); EOS % 8.3 % (0.0-3.0); HEMATOCRIT 44.5 % (42.0-52.0); HEMOGLOBIN 14.1 g/dl (13.5-17.5); LYMPH # 2.7 10^3/uL (1.5-5.0); LYMPH % 33.7 % (24.0-44.0); MEAN CORPUSCULAR HEMOGLOBIN 30.5 pg (27.0-33.0); MEAN CORPUSCULAR HGB CONC 31.7 g/dl (32.0-36.5); MEAN CORPUSCULAR VOLUME 96.1 fl (80.0-96.0); MONO # 0.8 10^3/uL (0.0-0.8); NEUTROPHILS # 3.8 10^3/uL (1.5-8.5); NEUTROPHILS % 46.8 % (36.0-66.0); PLATELET COUNT, AUTOMATED 262 10^3/uL (150-450); RED BLOOD COUNT 4.63 10^6/uL (4.30-6.10)
[2022-07-13 17:31] LABS: INR 0.88; PARTIAL THROMBOPLASTIN TIME 24.8 SECONDS (24.8-34.2); PROTHROMBIN TIME 12.1 SECONDS (12.5-14.5)
[2022-07-13 17:44] LABS: BLOOD UREA NITROGEN 13 MG/DL (9-23); CARBON DIOXIDE LEVEL 31 MMOL/L (20-31); CHLORIDE LEVEL 108 MMOL/L (98-107); CREATININE FOR GFR 0.92 MG/DL (0.70-1.30); GLOMERULAR FILTRATION RATE > 60.0 (>49); GLUCOSE, FASTING 100 MG/DL (74-106); POTASSIUM SERUM 4.5 MMOL/L (3.5-5.1); SODIUM LEVEL 141 MMOL/L (136-145)
== END ==
LOC: M RAD 15:54
PROVIDERS: ATTEND Nurse Practitioner Family
DX: I67.1 Cerebral aneurysm, nonruptured (principal); R00.1 Bradycardia, unspecified

== ENCOUNTER → 2022-11-24 | Outpatient (REF) | payer MEDICARE, OTHER ==
[~2022-11-24] MED LIST changes: +ANOR1AER; +ASPI81CH48 PO; +ATOR40TA75 PO; +HYDR-3910 PO; +IRBE300T7 PO; +MECL-209 PO; -MECL1TAB31 PO; +METO100T5 PO; +PANT40TA29 PO; +VENTAER
[2022-11-24 18:09] LABS: BASO # 0.1 10^3/uL (0.0-0.2); BASO % 0.7 % (0.0-1.0); EOS # 0.4 10^3/uL (0.0-0.5); EOS % 4.9 % (0.0-3.0); HEMATOCRIT 46.3 % (42.0-52.0); HEMOGLOBIN 14.7 g/dl (13.5-17.5); LYMPH # 2.3 10^3/uL (1.5-5.0); LYMPH % 28.3 % (24.0-44.0); MEAN CORPUSCULAR HEMOGLOBIN 30.1 pg (27.0-33.0); MEAN CORPUSCULAR HGB CONC 31.7 g/dl (32.0-36.5); MEAN CORPUSCULAR VOLUME 94.7 fl (80.0-96.0); MONO # 0.7 10^3/uL (0.0-0.8); MONO % 8.6 % (2.0-8.0); NEUTROPHILS # 4.7 10^3/uL (1.5-8.5); PLATELET COUNT, AUTOMATED 293 10^3/uL (150-450); RED BLOOD COUNT 4.89 10^6/uL (4.30-6.10); WHITE BLOOD COUNT 8.2 10^3/uL (4.0-10.0)
[2022-11-24 18:33] LABS: ALKALINE PHOSPHATASE 154 U/L (46-116); ALT/SGPT 46 U/L (7.0-40); AST/SGOT 23 U/L (<34); BILIRUBIN,TOTAL 0.7 MG/DL (0.3-1.2); BLOOD UREA NITROGEN 20 MG/DL (9-23); CALCIUM LEVEL 9.4 MG/DL (8.3-10.6); CARBON DIOXIDE LEVEL 30 MMOL/L (20-31); CHLORIDE LEVEL 103 MMOL/L (98-107); CHOLESTEROL LEVEL 113 MG/DL (<200); CHOLESTEROL RISK RATIO 3.12 (<5); CREATININE FOR GFR 0.88 MG/DL (0.70-1.30); GLOMERULAR FILTRATION RATE > 60.0 (>49); GLUCOSE, FASTING 100 MG/DL (74-106); HDL CHOLESTEROL 36.2 MG/DL (>40); NON-HDL-C 76.8 MG/DL; POTASSIUM SERUM 4.8 MMOL/L (3.5-5.1); SODIUM LEVEL 141 MMOL/L (136-145); THYROID STIMULATING HORMONE 1.442 uIU/ML (0.55-4.78); TOTAL PROTEIN 7.2 G/DL (5.7-8.2); TRIGLYCERIDES LEVEL 89 MG/DL (<150)
[2022-11-24 19:24] LABS: HEMOGLOBIN A1c 6.2 % (4.0-6.0)
== END ==
LOC: M LAB REF 16:30
PROVIDERS: ATTEND Pediatrics
DX: I10 Essential (primary) hypertension (principal); R73.03 Prediabetes; Z12.5 Encounter for screening for malignant neoplasm of prostate; E78.5 Hyperlipidemia, unspecified
CPT/HCPCS: 80053; 80061; 83036; 84443; 85025; G0103

== ENCOUNTER → 2023-04-29 | Outpatient (CLI) | payer MEDICARE, OTHER ==
[~2023-04-29] MED LIST changes: -HYDR-3910 PO; +HYDR25TA87 PO; +IRBE150T27 PO; -IRBE150T7 PO; +IRBE300T25 PO; -IRBE300T7 PO
== END ==
LOC: M RAD 15:40
PROVIDERS: ATTEND Physician Assistant
DX: R91.8 Other nonspecific abnormal finding of lung field (principal)

== ENCOUNTER → 2023-06-09 | Outpatient (CLI) | payer MEDICARE, OTHER ==
[2023-06-09 18:20] LABS: BLOOD UREA NITROGEN 25 MG/DL (9-23); CALCIUM LEVEL 9.3 MG/DL (8.3-10.6); CARBON DIOXIDE LEVEL 32 MMOL/L (20-31); CHLORIDE LEVEL 107 MMOL/L (98-107); CREATININE FOR GFR 0.96 MG/DL (0.70-1.30); GLOMERULAR FILTRATION RATE > 60.0 (>49); GLUCOSE, FASTING 99 MG/DL (74-106); POTASSIUM SERUM 3.9 MMOL/L (3.5-5.1); SODIUM LEVEL 141 MMOL/L (136-145)
== END ==
LOC: M RAD 17:16
PROVIDERS: ATTEND Physician Assistant
DX: R06.09 Other forms of dyspnea (principal); R91.1 Solitary pulmonary nodule

== ENCOUNTER → 2023-06-23 | Outpatient (REF) | payer MEDICARE, OTHER ==
[~2023-06-23] MED LIST changes: +RIFA300C62 PO; -RIFA300C8 PO
[2023-06-23 19:05] LABS: ALBUMIN 3.9 G/DL (3.2-5.2); ALKALINE PHOSPHATASE 166 U/L (46-116); ALT/SGPT 34 U/L (7.0-40); AST/SGOT 23 U/L (<34); BILIRUBIN,DIRECT 0.3 MG/DL (<0.4); BILIRUBIN,TOTAL 0.8 MG/DL (0.3-1.2); BLOOD UREA NITROGEN 26 MG/DL (9-23); CALCIUM LEVEL 9.4 MG/DL (8.3-10.6); CARBON DIOXIDE LEVEL 33 MMOL/L (20-31); CHLORIDE LEVEL 102 MMOL/L (98-107); CREATININE FOR GFR 1.14 MG/DL (0.70-1.30); GLOMERULAR FILTRATION RATE > 60.0 (>49); GLUCOSE, FASTING 104 MG/DL (74-106); POTASSIUM SERUM 5.3 MMOL/L (3.5-5.1); SODIUM LEVEL 139 MMOL/L (136-145); TOTAL PROTEIN 7.3 G/DL (5.7-8.2)
== END ==
LOC: M LAB REF 17:34
PROVIDERS: ATTEND Pediatrics
DX: R74.01 Elevation of levels of liver transaminase levels (principal); M79.89 Other specified soft tissue disorders; I10 Essential (primary) hypertension

== ENCOUNTER → 2023-07-06 | Outpatient (CLI) | payer MEDICARE, OTHER | LOC: M CARPUL 13:12 | PROVIDERS: ATTEND Physician Assistant | DX: R06.09 Other forms of dyspnea (principal) ==

== ENCOUNTER → 2023-07-28 | Outpatient (REF) | payer MEDICARE, OTHER ==
[2023-07-28 18:58] LABS: ALKALINE PHOSPHATASE 140 U/L (46-116); BLOOD UREA NITROGEN 19 MG/DL (9-23); CALCIUM LEVEL 9.4 MG/DL (8.3-10.6); CARBON DIOXIDE LEVEL 29 MMOL/L (20-31); CHLORIDE LEVEL 105 MMOL/L (98-107); CREATININE FOR GFR 0.96 MG/DL (0.70-1.30); GLOMERULAR FILTRATION RATE > 60.0 (>49); GLUCOSE, FASTING 109 MG/DL (74-106); POTASSIUM SERUM 5.1 MMOL/L (3.5-5.1); SODIUM LEVEL 139 MMOL/L (136-145)
[2023-07-28 19:00] LABS: TOTAL 25(OH) VITAMIN D 20.7 NG/ML (20.0-100.0)
[2023-07-28 19:10] LABS: HEMOGLOBIN A1c 5.6 % (4.0-6.0)
== END ==
LOC: M LAB REF 16:54
PROVIDERS: ATTEND Pediatrics
DX: R74.8 Abnormal levels of other serum enzymes (principal); M79.89 Other specified soft tissue disorders; R73.03 Prediabetes

== ENCOUNTER → 2023-08-03 | Outpatient (CLI) | payer MEDICARE, OTHER ==
[~2023-08-03] MED LIST changes: +FLUT1BLS8; +FURO20TA2 PO; +ISOVUE-370 76% 100ML VIAL ONE
== END ==
LOC: M PLAIMG 13:18
PROVIDERS: ATTEND Internal Medicine Pulmonary Disease
DX: R91.8 Other nonspecific abnormal finding of lung field (principal)
CPT/HCPCS: 71260; Q9967

== ENCOUNTER → 2023-08-24 | Outpatient (CLI) | payer MEDICARE, OTHER ==
[~2023-08-24] MED LIST changes: -ISOVUE-370 76% 100ML VIAL ONE
== END ==
LOC: M PLARAD 07:48
PROVIDERS: ATTEND Internal Medicine Pulmonary Disease
DX: R91.8 Other nonspecific abnormal finding of lung field (principal); Z53.9 Procedure and treatment not carried out, unspecified reason

== ENCOUNTER → 2023-08-30 | Outpatient (CLI) | payer MEDICARE, OTHER ==
[2023-08-30 17:11] LABS: BLOOD UREA NITROGEN 18 MG/DL (9-23); CREATININE FOR GFR 0.94 MG/DL (0.70-1.30); GLOMERULAR FILTRATION RATE > 60.0 (>49)
== END ==
LOC: M LAB 15:55
PROVIDERS: ATTEND Internal Medicine Pulmonary Disease
DX: R91.8 Other nonspecific abnormal finding of lung field (principal)

== ENCOUNTER → 2023-08-30 | Outpatient (CLI) | payer MEDICARE, OTHER | LOC: M RAD 15:52 | PROVIDERS: ATTEND Pediatrics | DX: M54.50 Low back pain, unspecified (principal); R91.8 Other nonspecific abnormal finding of lung field ==

== ENCOUNTER 2023-09-01 06:32 | Day surgery (SDC) | payer MEDICARE, OTHER ==
[~2023-09-01] VITALS: Ht 175.3 cm; Wt 108.6 kg
[~2023-09-01 06:32] MED LIST changes: +ALBUTEROL SULFATE 2.5MG/0.5ML INH NEB SOLN INH ONE; +LIDOCAINE PRES-FREE 2% 10ML AMP INH ONE
[2023-09-01] MEDS ORDERED: MIDAZOLAM INJ 2MG/2ML VIAL As Ordered ONE (06:57)
[2023-09-01] MEDS ORDERED: LIDOCAINE 2% 100MG/5ML SDV (FOR ANES.) As Ordered ONE (06:58)
[2023-09-01] MEDS ORDERED: fentaNYL 100 MCG/2 ML INJECTION As Ordered ONE (06:59)
[2023-09-01] MEDS ORDERED: ROCURONIUM BROMIDE 50MG/5ML VIAL As Ordered ONE (07:01)
[2023-09-01] MEDS: THROMBIN 5,000 UNITS VIAL As Ordered ONE (07:06)
[2023-09-01] MEDS: EPINEPHrine 1MG/10ML SYRINGE 1.5IN As Ordered ONE (07:07)
[2023-09-01] MEDS ORDERED: SUGAMMADEX SODIUM 500 MG/5 ML VIAL (BRIDION) As Ordered ONE (07:08)
[2023-09-01] MEDS: ALBUTEROL SULFATE 2.5MG/0.5ML INH NEB SOLN INH ONE (07:13)
[2023-09-01] MEDS: LIDOCAINE PRES-FREE 2% 10ML AMP INH ONE (07:13)
[2023-09-01] MEDS: LR 1,000 ML IV SCH (07:13)
[2023-09-01] MEDS ORDERED: propofoL 200 MG/20 ML VIAL As Ordered ONE (07:57)
[2023-09-01] MEDS ORDERED: ONDANSETRON 4MG 2ML VIAL As Ordered ONE (07:57)
[2023-09-01] MEDS: CETACAINE SPRAY 5GM As Ordered ONE (08:00)
[2023-09-01] MEDS ORDERED: ePHEDrine SULFATE 25 MG/5 ML(5MG/ML) SYRINGE As Ordered ONE (08:18)
[2023-09-01] MEDS ORDERED: oxyCODONE 5MG TAB PO PRN (09:00)
[2023-09-01] MEDS ORDERED: ONDANSETRON 4MG 2ML VIAL IV PRN (09:00)
[2023-09-01] MEDS ORDERED: LR 1,000 ML IV SCH (09:00)
[2023-09-01] MEDS ORDERED: fentaNYL 100 MCG/2 ML INJECTION IV PRN (09:00)
[2023-09-01] MEDS ORDERED: IPRATROPIUM 0.5MG/ALBUTEROL 2.5MG INH SOL UD 3ML (DUONEB) As Ordered ONE (09:27)
[2023-09-01] MEDS: IPRATROPIUM 0.5MG/ALBUTEROL 2.5MG INH SOL UD 3ML (DUONEB) NEB ONE (09:28)
[2023-09-01] MEDS ORDERED: KETOROLAC 30 MG/ML 1ML VIAL As Ordered ONE (10:26)
[2023-09-01] MEDS: KETOROLAC 30 MG/ML 1ML VIAL IV ONE (10:28)
[2023-09-01] MEDS: ACETAMINOPHEN *IV* 1,000 MG in IV 1 EA IV ONE (10:34)
[2023-09-01 12:05] VITALS: BP 131/71; TEMP 97.2
[2023-09-01 12:30] VITALS: O2SAT 98
== END 2023-09-01 12:36 | disposition home or self-care (01) ==
LOC: M SDC 06:32
PROVIDERS: ATTEND Internal Medicine Pulmonary Disease
DX: C77.1 Secondary and unspecified malignant neoplasm of intrathoracic lymph nodes (principal); Z86.79 Personal history of other diseases of the circulatory system; R06.02 Shortness of breath; Z88.8 Allergy status to other drugs, medicaments and biological substances; Z79.899 Other long term (current) drug therapy; Z87.891 Personal history of nicotine dependence
CPT/HCPCS: 31629; 31652; 71045; 88173; 88305; 93005; J0131; J0171; J1885; J2405; J3010

== ENCOUNTER → 2023-09-24 | Outpatient (CLI) | payer MEDICARE, OTHER ==
[~2023-09-24] MED LIST changes: -ALBUTEROL SULFATE 2.5MG/0.5ML INH NEB SOLN INH ONE; +KETO2SHA8; -LIDOCAINE PRES-FREE 2% 10ML AMP INH ONE; +METO1TAB87 PO; +NYST-13; +TRIA1CR80
== END ==
LOC: M ONCR 13:04
PROVIDERS: ATTEND General Practice
DX: C34.11 Malignant neoplasm of upper lobe, right bronchus or lung (principal); F40.240 Claustrophobia; Z79.82 Long term (current) use of aspirin; Z79.899 Other long term (current) drug therapy; Z80.1 Family history of malignant neoplasm of trachea, bronchus and lung; Z80.7 Family history of other malignant neoplasms of lymphoid, hematopoietic and related tissues; Z87.891 Personal history of nicotine dependence

== ENCOUNTER → 2023-09-27 | Outpatient (CLI) | payer MEDICARE, OTHER | LOC: M RAD 17:25 | PROVIDERS: ATTEND Internal Medicine Pulmonary Disease | DX: C34.11 Malignant neoplasm of upper lobe, right bronchus or lung (principal) ==

== ENCOUNTER → 2023-10-04 | Outpatient (CLI) | payer MEDICARE, OTHER ==
[~2023-10-04] MED LIST changes: +GASTROGRAFIN SOLUTION 30ML As Ordered ONE; +ISOVUE-370 76% 100ML VIAL As Ordered ONE
== END ==
LOC: M RAD 13:37
PROVIDERS: ATTEND Internal Medicine Medical Oncology
DX: C34.00 Malignant neoplasm of unspecified main bronchus (principal)
CPT/HCPCS: 70450; 74177; Q9963; Q9967

== ENCOUNTER 2023-10-12 13:50 | Outpatient (RCR) | payer MEDICARE, OTHER ==
[~2023-10-12 13:50] MED LIST changes: -GASTROGRAFIN SOLUTION 30ML As Ordered ONE; -ISOVUE-370 76% 100ML VIAL As Ordered ONE
== END 2023-10-13 ==
LOC: M ONCR 13:50
PROVIDERS: ATTEND General Practice
DX: Z51.0 Encounter for antineoplastic radiation therapy (principal); C34.11 Malignant neoplasm of upper lobe, right bronchus or lung

== ENCOUNTER 2023-10-13 08:00 | Day surgery (SDC) | payer MEDICARE, OTHER ==
[~2023-10-13] VITALS: Ht 177.8 cm; Wt 106.0 kg
[~2023-10-13 08:00] MED LIST changes: +LIDOCAINE 2% 100MG/5ML SDV (FOR ANES.) As Ordered ONE; +MIDAZOLAM INJ 2MG/2ML VIAL As Ordered ONE; +ONDANSETRON 4MG 2ML VIAL As Ordered ONE; +ROCURONIUM BROMIDE 50MG/5ML VIAL As Ordered ONE; +fentaNYL 100 MCG/2 ML INJECTION As Ordered ONE; +propofoL 200 MG/20 ML VIAL As Ordered ONE
[2023-10-13] MEDS ORDERED: LR 1,000 ML IV SCH (08:40)
[2023-10-13] MEDS: ALBUTEROL SULFATE 2.5MG/0.5ML INH NEB SOLN INH ONE (08:49)
[2023-10-13] MEDS: LIDOCAINE PRES-FREE 2% 10ML AMP INH ONE (08:50)
[2023-10-13] MEDS: CETACAINE SPRAY 5GM As Ordered ONE (09:05)
[2023-10-13] MEDS ORDERED: PHENYLephrine 500MCG 5ML (100MCG/ML) SYRINGE As Ordered ONE (09:28)
[2023-10-13] MEDS ORDERED: ePHEDrine SULFATE 25 MG/5 ML(5MG/ML) SYRINGE As Ordered ONE (09:45)
[2023-10-13] MEDS: THROMBIN 5,000 UNITS VIAL As Ordered ONE (10:05)
[2023-10-13] MEDS: EPINEPHrine 1MG/10ML SYRINGE 1.5IN As Ordered ONE (10:05)
[2023-10-13] MEDS ORDERED: oxyCODONE 5MG TAB PO PRN (10:05)
[2023-10-13] MEDS ORDERED: fentaNYL 100 MCG/2 ML INJECTION IV PRN (10:05)
[2023-10-13] MEDS ORDERED: ONDANSETRON 4MG 2ML VIAL IV PRN (10:05)
[2023-10-13] MEDS ORDERED: SUGAMMADEX SODIUM 500 MG/5 ML VIAL (BRIDION) As Ordered ONE (10:07)
[2023-10-13] MEDS: IPRATROPIUM 0.5MG/ALBUTEROL 2.5MG INH SOL UD 3ML (DUONEB) NEB ONE (10:40)
[2023-10-13] MEDS: BUDESONIDE 0.5 MG/2 ML INHALATION SUSPENSION NEB ONE (10:40)
[2023-10-13 13:10] VITALS: BP 106/56; TEMP 96.8; O2SAT 93
== END 2023-10-13 13:11 | disposition home or self-care (01) ==
LOC: M SDC 08:00
PROVIDERS: ATTEND Internal Medicine Pulmonary Disease
DX: R91.8 Other nonspecific abnormal finding of lung field (principal); E78.00 Pure hypercholesterolemia, unspecified; Z84.89 Family history of other specified conditions; I10 Essential (primary) hypertension; F41.9 Anxiety disorder, unspecified; F32.A Depression, unspecified; J44.9 Chronic obstructive pulmonary disease, unspecified; R06.02 Shortness of breath; M19.90 Unspecified osteoarthritis, unspecified site; Z87.891 Personal history of nicotine dependence; Z88.8 Allergy status to other drugs, medicaments and biological substances; Z79.899 Other long term (current) drug therapy; Z79.82 Long term (current) use of aspirin; Z79.51 Long term (current) use of inhaled steroids
CPT/HCPCS: 31627; 31628; 31654; 71045; 76000; 88305; C1601; J0171; J1100; J2250; J2371; J2405; J3010; S2900

== ENCOUNTER → 2023-11-03 | Outpatient (CLI) | payer MEDICARE, OTHER ==
[~2023-11-03] VITALS: Ht 177.8 cm; Wt 104.0 kg
[~2023-11-03] MED LIST changes: -KETO2SHA8; +KETO2SHA8 TOP; +LIDOCAINE 1% MDV 20ML VIAL As Ordered ONE; -LIDOCAINE 2% 100MG/5ML SDV (FOR ANES.) As Ordered ONE; +ONDA-282 PO; -ONDANSETRON 4MG 2ML VIAL As Ordered ONE; +PROC10TA5 PO; -ROCURONIUM BROMIDE 50MG/5ML VIAL As Ordered ONE; -TRIA1CR80; +TRIA1CR80 TOP; +ceFAZolin 2 GM/D5W 50 ML IV BAG As Ordered ONE; -propofoL 200 MG/20 ML VIAL As Ordered ONE
[2023-11-03 12:15] VITALS: TEMP 97
[2023-11-03] MEDS: ceFAZolin SOD 2 GM in IV 1 EA IV ONE (12:30)
[2023-11-03] MEDS: NS 1,000 ML IV SCH (12:30)
[2023-11-03 14:13] VITALS: BP 133/71; O2SAT 95
== END ==
LOC: M IRPRO 12:09
PROVIDERS: ATTEND Internal Medicine Medical Oncology
DX: C34.90 Malignant neoplasm of unspecified part of unspecified bronchus or lung (principal)
CPT/HCPCS: 36561; 99152; 99153; J0690; J2250; J3010

== ENCOUNTER 2023-11-12 14:00 | Outpatient (RCR) | payer MEDICARE, OTHER ==
[~2023-11-12 14:00] MED LIST changes: -LIDOCAINE 1% MDV 20ML VIAL As Ordered ONE; -MIDAZOLAM INJ 2MG/2ML VIAL As Ordered ONE; -ceFAZolin 2 GM/D5W 50 ML IV BAG As Ordered ONE; -fentaNYL 100 MCG/2 ML INJECTION As Ordered ONE
[2023-11-16] MEDS ORDERED: PANT40TA29 PO (12:17)
== END 2023-11-13 ==
LOC: M ONCR 14:00
PROVIDERS: ATTEND General Practice
DX: Z51.0 Encounter for antineoplastic radiation therapy (principal); C34.11 Malignant neoplasm of upper lobe, right bronchus or lung

== ENCOUNTER 2023-12-10 14:00 | Outpatient (RCR) | payer MEDICARE, OTHER | END 2023-12-13 | LOC: M ONCR 14:00 | PROVIDERS: ATTEND General Practice | DX: Z51.0 Encounter for antineoplastic radiation therapy (principal); C34.11 Malignant neoplasm of upper lobe, right bronchus or lung ==

== ENCOUNTER → 2023-12-22 | Outpatient (CLI) | payer MEDICARE, OTHER ==
[~2023-12-22] MED LIST changes: +GASTROGRAFIN SOLUTION 30ML As Ordered ONE; +ISOVUE-370 76% 100ML VIAL As Ordered ONE
== END ==
LOC: M RAD 12:46
PROVIDERS: ATTEND Internal Medicine Medical Oncology
DX: C34.90 Malignant neoplasm of unspecified part of unspecified bronchus or lung (principal)
CPT/HCPCS: 71260; 74177; Q9963; Q9967

== ENCOUNTER → 2024-01-11 | Outpatient (REF) | payer MEDICARE, OTHER ==
[~2024-01-11] MED LIST changes: -GASTROGRAFIN SOLUTION 30ML As Ordered ONE; -ISOVUE-370 76% 100ML VIAL As Ordered ONE
[2024-01-11 18:54] LABS: HEMOGLOBIN A1c 5.7 % (4.0-6.0)
[2024-01-11 18:56] LABS: BLOOD UREA NITROGEN 17 MG/DL (9-23); CALCIUM LEVEL 9.9 MG/DL (8.3-10.6); CARBON DIOXIDE LEVEL 32 MMOL/L (20-31); CHLORIDE LEVEL 107 MMOL/L (98-107); CHOLESTEROL LEVEL 129 MG/DL (<200); CREATININE FOR GFR 0.97 MG/DL (0.70-1.30); GLOMERULAR FILTRATION RATE > 60.0 (>49); GLUCOSE, FASTING 116 MG/DL (74-106); HDL CHOLESTEROL 27.4 MG/DL (>40); NON-HDL-C 101.6 MG/DL; POTASSIUM SERUM 4.5 MMOL/L (3.5-5.1); SODIUM LEVEL 142 MMOL/L (136-145); TRIGLYCERIDES LEVEL 163 MG/DL (<150)
[2024-01-11 19:00] LABS: THYROID STIMULATING HORMONE 1.173 uIU/ML (0.55-4.78)
== END ==
LOC: M LAB REF 16:52
PROVIDERS: ATTEND Pediatrics
DX: I10 Essential (primary) hypertension (principal); E78.5 Hyperlipidemia, unspecified; R73.03 Prediabetes; E83.42 Hypomagnesemia

== ENCOUNTER → 2024-04-04 | Outpatient (CLI) | payer MEDICARE, OTHER ==
[~2024-04-04] MED LIST changes: +ISOVUE-370 76% 100ML VIAL As Ordered ONE
== END ==
LOC: M RAD 09:16
PROVIDERS: ATTEND Internal Medicine Medical Oncology
DX: C34.01 Malignant neoplasm of right main bronchus (principal); N28.1 Cyst of kidney, acquired; K57.30 Diverticulosis of large intestine without perforation or abscess without bleeding; K42.9 Umbilical hernia without obstruction or gangrene; J47.9 Bronchiectasis, uncomplicated; I70.0 Atherosclerosis of aorta; I25.10 Atherosclerotic heart disease of native coronary artery without angina pectoris; Z95.828 Presence of other vascular implants and grafts
CPT/HCPCS: 71260; 74177; Q9967

== ENCOUNTER → 2024-05-30 | Outpatient (CLI) | payer MEDICARE, OTHER | LOC: M RAD 12:33 | PROVIDERS: ATTEND Internal Medicine Hematology & Oncology | DX: C34.90 Malignant neoplasm of unspecified part of unspecified bronchus or lung (principal) | CPT/HCPCS: 71260; 74177; Q9967 ==

== ENCOUNTER → 2024-06-08 | Outpatient (CLI) | payer MEDICARE, OTHER ==
[~2024-06-08] MED LIST changes: -ISOVUE-370 76% 100ML VIAL As Ordered ONE
== END ==
LOC: M ONCR 13:54
PROVIDERS: ATTEND General Practice
DX: C34.11 Malignant neoplasm of upper lobe, right bronchus or lung (principal); Z79.69 Long term (current) use of other immunomodulators and immunosuppressants; Z79.82 Long term (current) use of aspirin; Z79.899 Other long term (current) drug therapy; Z87.891 Personal history of nicotine dependence; Z92.21 Personal history of antineoplastic chemotherapy; Z92.3 Personal history of irradiation

== ENCOUNTER → 2024-07-26 | Outpatient (CLI) | payer MEDICARE, OTHER ==
[~2024-07-26] MED LIST changes: +ISOVUE-370 76% 100ML VIAL ONE; +KETO120S5 TOP; -KETO2SHA8 TOP; -NYST-13; +NYST0.1C; +PRED50TA57 PO
== END ==
LOC: M PLAIMG 13:49
PROVIDERS: ATTEND Specialist
DX: C34.90 Malignant neoplasm of unspecified part of unspecified bronchus or lung (principal); Z12.5 Encounter for screening for malignant neoplasm of prostate; R73.03 Prediabetes
CPT/HCPCS: 36415; 71260; 83036; G0103; Q9967

== ENCOUNTER → 2024-07-26 | Outpatient (CLI) | payer MEDICARE, OTHER ==
[~2024-07-26] MED LIST changes: -ISOVUE-370 76% 100ML VIAL ONE
[2024-07-26 15:47] LABS: HEMOGLOBIN A1c 5.8 % (4.0-6.0)
== END ==
LOC: M PLALAB 13:47
PROVIDERS: ATTEND Pediatrics
DX: Z12.5 Encounter for screening for malignant neoplasm of prostate (principal); R73.03 Prediabetes; C34.90 Malignant neoplasm of unspecified part of unspecified bronchus or lung

== ENCOUNTER → 2024-10-23 | Outpatient (CLI) | payer MEDICARE, MEDICAID ==
[~2024-10-23] MED LIST changes: +ISOVUE-370 76% 100 ML VIAL ONE
== END ==
LOC: M PLAIMG 12:22
PROVIDERS: ATTEND Internal Medicine Medical Oncology
DX: C34.11 Malignant neoplasm of upper lobe, right bronchus or lung (principal); K42.9 Umbilical hernia without obstruction or gangrene; R91.8 Other nonspecific abnormal finding of lung field
CPT/HCPCS: 71260; 74177; Q9967

== ENCOUNTER → 2024-12-12 | Outpatient (CLI) | payer MEDICARE, MEDICAID ==
[~2024-12-12] MED LIST changes: -ISOVUE-370 76% 100 ML VIAL ONE; +amoxicillin
== END ==
LOC: M ONCR 14:49
PROVIDERS: ATTEND General Practice
DX: C34.11 Malignant neoplasm of upper lobe, right bronchus or lung (principal); Z87.891 Personal history of nicotine dependence; Z92.21 Personal history of antineoplastic chemotherapy; Z92.3 Personal history of irradiation; Z79.620 Long term (current) use of immunosuppressive biologic; Z88.8 Allergy status to other drugs, medicaments and biological substances; Z79.51 Long term (current) use of inhaled steroids; Z79.82 Long term (current) use of aspirin; Z79.899 Other long term (current) drug therapy

== ENCOUNTER → 2024-12-27 | Outpatient (REF) | payer MEDICARE, MEDICAID ==
[2024-12-27 16:13] LABS: ESTIMATED AVERAGE GLUCOSE 126.0 MG/DL (60-110)
[2024-12-27 16:36] LABS: ALT/SGPT 30.0 U/L (7.0-40); AST/SGOT 23.0 U/L (<34); CALCIUM LEVEL 9.4 MG/DL (8.3-10.6); CARBON DIOXIDE LEVEL 31.0 MMOL/L (20-31); CHLORIDE LEVEL 105.0 MMOL/L (98-107); CHOLESTEROL LEVEL 116.0 MG/DL (<200); CHOLESTEROL RISK RATIO 3.61 (<5); CREATININE FOR GFR 0.94 MG/DL (0.70-1.30); GLOMERULAR FILTRATION RATE 88.9 (>49); LDL CHOLESTEROL 64.5 MG/DL (<100); NON-HDL-C 83.9 MG/DL; POTASSIUM SERUM 4.6 MMOL/L (3.5-5.1); SODIUM LEVEL 147.0 MMOL/L (136-145); TRIGLYCERIDES LEVEL 97.0 MG/DL (<150)
== END ==
LOC: M LAB REF 14:57
PROVIDERS: ATTEND Pediatrics
DX: E78.5 Hyperlipidemia, unspecified (principal); R73.03 Prediabetes; K21.9 Gastro-esophageal reflux disease without esophagitis

== ENCOUNTER → 2025-01-22 | Outpatient (CLI) | payer MEDICARE, MEDICAID ==
[~2025-01-22] MED LIST changes: +ISOVUE-370 76% 100 ML VIAL As Ordered ONE
== END ==
LOC: M RAD 12:26
PROVIDERS: ATTEND Internal Medicine Medical Oncology
DX: C34.91 Malignant neoplasm of unspecified part of right bronchus or lung (principal); K76.0 Fatty (change of) liver, not elsewhere classified; K86.89 Other specified diseases of pancreas; N28.1 Cyst of kidney, acquired; K57.90 Diverticulosis of intestine, part unspecified, without perforation or abscess without bleeding; K42.9 Umbilical hernia without obstruction or gangrene; I70.0 Atherosclerosis of aorta; J43.9 Emphysema, unspecified; I25.10 Atherosclerotic heart disease of native coronary artery without angina pectoris; R91.8 Other nonspecific abnormal finding of lung field
CPT/HCPCS: 71260; 74177; Q9967

== ENCOUNTER → 2025-02-14 | Outpatient (CLI) | payer MEDICARE, MEDICAID ==
[~2025-02-14] MED LIST changes: +DIAZ5TAB PO
== END ==
LOC: M RAD 07:24
PROVIDERS: ATTEND Internal Medicine Medical Oncology
DX: C34.90 Malignant neoplasm of unspecified part of unspecified bronchus or lung (principal); I69.314 Frontal lobe and executive function deficit following cerebral infarction; G31.9 Degenerative disease of nervous system, unspecified; R90.82 White matter disease, unspecified
CPT/HCPCS: 70470; Q9967

== ENCOUNTER → 2025-02-19 | Outpatient (CLI) | payer MEDICARE, MEDICAID ==
[~2025-02-19] MED LIST changes: -ISOVUE-370 76% 100 ML VIAL As Ordered ONE
== END ==
LOC: M PLARAD 13:36
PROVIDERS: ATTEND Internal Medicine Medical Oncology
DX: C34.11 Malignant neoplasm of upper lobe, right bronchus or lung (principal)
CPT/HCPCS: 78815; A9552

== ENCOUNTER → 2025-02-21 | Outpatient (CLI) | payer MEDICARE, MEDICAID | LOC: M ONCR 12:22 | PROVIDERS: ATTEND General Practice | DX: C34.11 Malignant neoplasm of upper lobe, right bronchus or lung (principal); R91.8 Other nonspecific abnormal finding of lung field; Z87.891 Personal history of nicotine dependence; Z92.21 Personal history of antineoplastic chemotherapy; Z92.3 Personal history of irradiation; Z88.8 Allergy status to other drugs, medicaments and biological substances; Z79.51 Long term (current) use of inhaled steroids; Z79.82 Long term (current) use of aspirin; Z79.899 Other long term (current) drug therapy ==